=== PATIENT | female | born 1930 | race African-American/Black ===

== ENCOUNTER 2016-11-07 11:39 | Emergency (ER) | payer MEDICARE, MEDICAID ==
[~2016-11-07] VITALS: Ht 152.4 cm; Wt 64.0 kg
[2016-11-07] MEDS ORDERED: ACETAMINOPHEN 325MG TABLET PO ONE (13:15)
[2016-11-07 16:13] VITALS: BP 136/72
== END 2016-11-07 16:34 | disposition home or self-care (01) ==
LOC: ER 12:54
DX: S32.008A Other fracture of unspecified lumbar vertebra, initial encounter for closed fracture (principal); S83.92XA Sprain of unspecified site of left knee, initial encounter; W18.39XA Other fall on same level, initial encounter; Y93.89 Activity, other specified; Y92.89 Other specified places as the place of occurrence of the external cause
CPT/HCPCS: 29505; 72100; 72170; 73562; 99284

== ENCOUNTER 2016-12-15 16:16 | Inpatient (IN) | payer MEDICARE, MEDICAID ==
[~2016-12-15] VITALS: Ht 154.9 cm; Wt 61.4 kg
[2016-12-15 04:00] VITALS: BP 112/77
[2016-12-15] MEDS ORDERED: DILTIAZEM HCL 125 MG in DEXT 5% WATER 100 ML IV ONE (17:30)
[2016-12-15] MEDS ORDERED: DILTIAZEM HCL 5MG/ML 5ML VIAL IV ONE (17:30)
[2016-12-15 18:10] LABS: BASOPHILS % 1.2 % (0.0-2.0); EOSINOPHILS % 0.4 % (0.0-5.0); HEMOGLOBIN. 15.1 g/dL (12.0-16.0); MEAN CORPUSCULAR HEMOGLOBIN 27.8 pg (28.0-32.0); MEAN CORPUSCULAR VOLUME 86.4 fL (81.0-99.0); MEAN PLATELET VOLUME 8.6 fl (7.4-10.4); MONOCYTES % 7.6 % (2.0-8.0); NEUTROPHILS % 66.8 % (40.0-76.0); PLATELET 264 x1000/uL (130-400); RED BLOOD CELL COUNT 5.44 mill/uL (4.2-5.4); RED CELL DISTRIBUTION WIDTH 15.5 % (11.6-14.6)
[2016-12-15 18:18] LABS: INR 1.2; PROTHROMBIN TIME 12.1 sec (9.4-11.6)
[2016-12-15 18:20] LABS: CARBON DIOXIDE 28 mEq/L (21-32); CHLORIDE 103 mEq/L (98-107)
[2016-12-15 18:28] LABS: TROPONIN I < 0.02 ng/mL (0.00-0.04)
[2016-12-15 21:05] VITALS: BP 122/94
[2016-12-15 22:30] VITALS: BP 123/82
[2016-12-15] MEDS ORDERED: POTASSIUM CHLORIDE 20MEQ TABLET SR PO NR (23:45)
[2016-12-16] VITALS (12 sets, daily range): BP systolic 95–149; BP diastolic 48–94
[2016-12-16 01:31] LABS: CREATINE KINASE 48 IU/L (26-192); CREATINE KINASE MB FRACTION 1.4 ng/mL (0.5-3.6); TROPONIN I < 0.02 ng/mL (0.00-0.04)
[2016-12-16 07:50] LABS: HEMATOCRIT. 41.1 % (36.0-48.0); HEMOGLOBIN. 13.6 g/dL (12.0-16.0); MEAN CORPUSCULAR HEMOGLOBIN 28.4 pg (28.0-32.0); MEAN CORPUSCULAR VOLUME 85.5 fL (81.0-99.0); MEAN PLATELET VOLUME 8.5 fl (7.4-10.4); PLATELET 232 x1000/uL (130-400); RED CELL DISTRIBUTION WIDTH 15.5 % (11.6-14.6)
[2016-12-16 08:19] LABS: CARBON DIOXIDE 30 mEq/L (21-32); CHLORIDE 104 mEq/L (98-107); CREATINE KINASE 39 IU/L (26-192); CREATINE KINASE MB FRACTION 1.3 ng/mL (0.5-3.6); T4 FREE 1.02 ng/dL (0.76-1.46); TROPONIN I 0.02 ng/mL (0.00-0.04)
[2016-12-16] MEDS ORDERED: HYDR12.529 PO (08:26)
[2016-12-16] MEDS ORDERED: APIX5TAB PO (08:26)
[2016-12-16] MEDS ORDERED: LOSA50TA20 PO (08:26)
[2016-12-16] MEDS ORDERED: TRAM50TA3 PO (08:26)
[2016-12-16] MEDS ORDERED: DILT120C2 PO (08:26)
[2016-12-16] MEDS ORDERED: ENOXAPARIN 30MG/0.3ML SYR SUBCUT SCH (09:00)
[2016-12-16] MEDS ORDERED: CLOPIDOGREL 75MG TABLET PO SCH (09:00)
[2016-12-16 09:05] LABS: PLATELET ESTIMATE NORMAL
[2016-12-16] MEDS ORDERED: DILTIAZEM HCL 240MG ER (24HR) PO SCH (11:00)
== END 2016-12-16 18:45 | disposition home or self-care (01) | DRG 310 ==
LOC: ER 16:57 → EDBEDREQSVC 19:09 → EDBEDREQ 19:09 → EDBEDREQTM 19:09 → 3WST 20:17 → EDBEDREQTM 20:22 → EDBEDREQ 20:22 → ENRESERV 20:25
PROVIDERS: ADMIT Internal Medicine; ATTEND Internal Medicine
DX: I48.0 Paroxysmal atrial fibrillation (principal); M06.9 Rheumatoid arthritis, unspecified; I10 Essential (primary) hypertension; M19.90 Unspecified osteoarthritis, unspecified site; Z80.0 Family history of malignant neoplasm of digestive organs; Z80.3 Family history of malignant neoplasm of breast; Z91.81 History of falling; Z90.49 Acquired absence of other specified parts of digestive tract; Z90.710 Acquired absence of both cervix and uterus; Z88.0 Allergy status to penicillin; Z88.6 Allergy status to analgesic agent
CPT/HCPCS: 36415; 71010; 80053; 82550; 82553; 83880; 84439; 84443; 84484; 85025; 85610; 93005; 93306; 96374; 99291; J1650; J3490; J7060

== ENCOUNTER 2018-04-03 19:45 | Inpatient (IN) | payer MEDICARE, MEDICAID ==
[~2018-04-03] VITALS: Ht 153.7 cm; Wt 63.5 kg
[~2018-04-03 19:45] MED LIST: APIX5TAB PO; DILT-26 PO; HYDR12.529 PO; LOSA50TA20 PO; TRAM50TA3 PO
[2018-04-03 23:13] LABS: HEMATOCRIT. 50.6 % (36.0-48.0); HEMOGLOBIN. 16.4 g/dL (12.0-16.0); MEAN CORPUSCULAR HEMOGLOBIN 27.8 pg (28.0-32.0); MEAN CORPUSCULAR VOLUME 85.8 fL (81.0-99.0); MEAN PLATELET VOLUME 8.2 fl (7.4-10.4); PLATELET 236 x1000/uL (130-400); RED CELL DISTRIBUTION WIDTH 15.3 % (11.6-14.6)
[2018-04-03 23:18] LABS: CHLORIDE 111 mEq/L (98-107)
[2018-04-03 23:23] LABS: PARTIAL THROMBOPLASTIN TIME 25.2 sec (23.4-31.0); PROTHROMBIN TIME 10.1 sec (9.1-11.1)
[2018-04-03 23:28] LABS: PLATELET ESTIMATE NORMAL
[2018-04-04] MEDS ORDERED: DILTIAZEM HCL 5MG/ML 5ML VIAL IV NR ×3 (00:15→17:15)
[2018-04-04] MEDS ORDERED: SODIUM CHLORIDE 0.9% 500 ML IV NR (00:15)
[2018-04-04] MEDS ORDERED: SODIUM CHLORIDE 0.9% 1,000 ML IV ONE (04:29)
[2018-04-04] MEDS ORDERED: ADENOSINE 3 MG/ML 2ML VIAL IV ONE (04:30)
[2018-04-04 10:30] VITALS: BP 144/89
[2018-04-04] MEDS ORDERED: IPRATROPIUM/ALBUTEROL 0.5-3(2.5)MG/3ML NEB INH PRN (10:30)
[2018-04-04] MEDS ORDERED: MAGNESIUM/ALUMINUM HYDROXIDE/SIMETHICONE 30ML UDC PO PRN (10:30)
[2018-04-04] MEDS ORDERED: HYDROCODONE/ACETAMINOPHEN 10/325MG TABLET PO PRN (10:30)
[2018-04-04] MEDS ORDERED: HYDROMORPHONE HCL/PF 2MG/ML CPJ IV PRN (10:30)
[2018-04-04] MEDS ORDERED: HYDRALAZINE 20MG/ML VIAL IV PRN (10:30)
[2018-04-04] MEDS ORDERED: DIPHENHYDRAMINE 50MG/ML VIAL IV PRN (10:30)
[2018-04-04] MEDS ORDERED: CLONIDINE 0.1MG TABLET PO PRN (10:30)
[2018-04-04] MEDS ORDERED: DOCUSATE SODIUM 100MG CAPSULE PO PRN (10:30)
[2018-04-04] MEDS ORDERED: ACETAMINOPHEN 325MG TABLET PO PRN (10:30)
[2018-04-04] MEDS ORDERED: NA PHOS,M-B/NA PHOS,DI-BA ENEMA 118ML PR PRN (10:30)
[2018-04-04] MEDS ORDERED: LORAZEPAM 2MG/ML CPJ IV PRN ×2 (10:30→18:30)
[2018-04-04] MEDS ORDERED: ONDANSETRON HCL 4MG/2ML INJ IV PRN (10:30)
[2018-04-04] MEDS ORDERED: GUAIFENESIN 200MG/10ML SUGAR FREE UDC PO PRN (10:30)
[2018-04-04 12:00] VITALS: BP 144/80
[2018-04-04] MEDS: APIXABAN 5 MG TABLET PO SCH ×2 (13:25→17:29)
[2018-04-04 16:00] VITALS: BP 144/92
[2018-04-04] MEDS ORDERED: LEVOFLOXACIN 500MG PREMIX 100 ML IV NR (17:00)
[2018-04-04] MEDS: SOTALOL HCL 80MG TABLET PO SCH ×2 (17:29→21:40)
[2018-04-04 17:45] LABS: CHLORIDE 113 mEq/L (98-107)
[2018-04-04] MEDS ORDERED: HYDROCODONE/ACETAMINOPHEN 5/325MG TABLET PO PRN (17:45)
[2018-04-04 17:55] LABS: CREATINE KINASE 60 IU/L (26-192)
[2018-04-04 17:57] LABS: CREATINE KINASE MB FRACTION 2.4 ng/mL (0.5-3.6)
[2018-04-04 17:58] LABS: HEMATOCRIT 46.4 % (36.0-48.0); MEAN CORPUSCULAR HEMOGLOBIN 27.7 pg (28.0-32.0); MEAN CORPUSCULAR VOLUME 85.6 fL (81.0-99.0); PLATELET 213 x1000/uL (130-400); RED BLOOD CELL COUNT 5.42 mill/uL (4.2-5.4); RED CELL DISTRIBUTION WIDTH 15.8 % (11.6-14.6)
[2018-04-04 18:38] LABS: BG BASE EXCESS -0.9 mmol/L (-2.0-2.0); BG CARBOXYHEMOGLOBIN 1.3 % (0.5-1.5); BG DEOXYHEMOGLOBIN 6.5 % (0.0-5.0); BG FRACTION INSPIRED OXYGEN 21; BG METHEMOGLOBIN 0.5 % (0.0-1.5); BG OXYGEN SATURATION 93.4 % (92.0-98.5); BG OXYHEMOGLOBIN 91.7 % (94.0-97.0); BG PH 7.353 (7.350-7.450); BG PO2 67.6 mmHg (75.0-100.0); BG SAMPLE SITE RIGHT RADIAL; BG TOTAL HEMOGLOBIN 15.6 g/dL (12.0-18.0); BG VENT MODE ROOM AIR
[2018-04-04 19:55] LABS: CLARITY URINE CLEAR (CLEAR); COLOR URINE YELLOW (YELLOW); KETONES URINE TRACE (NEGATIVE); LEUKOCYTE ESTERASE URINE NEGATIVE (NEGATIVE); NITRITE URINE NEGATIVE (NEGATIVE); OCCULT BLOOD URINE NEGATIVE (NEGATIVE); PROTEIN URINE NEGATIVE (NEGATIVE); SPECIFIC GRAVITY URINE 1.019 (1.005-1.030); UROBILINOGEN URINE 0.2 E.U./dL (0.2-1.0)
[2018-04-04 20:00] VITALS: BP 125/68
[2018-04-04] MEDS: METRONIDAZOLE 500MG TABLET PO SCH (21:39)
[2018-04-04] MEDS: FAMOTIDINE 20MG/2ML VIAL IV SCH (21:39)
[2018-04-04] MEDS: SODIUM CHLORIDE 0.9% INJ 3ML FLUSH IVF SCH (21:41)
[2018-04-04] MEDS: DILTIAZEM HCL 30MG TABLET PO SCH (21:41)
[2018-04-04] MEDS: DEXT 5%/0.45% NACL 1000ML 1,000 ML IV SCH (21:41)
[2018-04-05] VITALS: BP 105/60
[2018-04-05 04:00] VITALS: BP_SYST 108; BP_SYST 121; BP_DIAS 49; BP_DIAS 56
[2018-04-05] MEDS: DILTIAZEM HCL 30MG TABLET PO SCH (06:00)
[2018-04-05] MEDS: SOTALOL HCL 80MG TABLET PO SCH ×2 (06:00→21:00)
[2018-04-05] MEDS: SODIUM CHLORIDE 0.9% INJ 3ML FLUSH IVF SCH ×3 (06:36→21:14)
[2018-04-05] MEDS: METRONIDAZOLE 500MG TABLET PO SCH ×3 (06:36→21:14)
[2018-04-05] MEDS: DEXT 5%/0.45% NACL 1000ML 1,000 ML IV SCH (06:37)
[2018-04-05 07:05] LABS: CHLORIDE 112 mEq/L (98-107)
[2018-04-05 07:28] LABS: LDL CHOLESTEROL 54 mg/dL (5-100)
[2018-04-05 07:28] LABS: BASOPHILS % 0.2 % (0.0-2.0); EOSINOPHILS % 1.4 % (0.0-5.0); HEMATOCRIT. 40.4 % (36.0-48.0); HEMOGLOBIN. 12.9 g/dL (12.0-16.0); LYMPHOCYTES % 15.8 % (20.0-50.0); MEAN CORPUSCULAR HEMOGLOBIN 27.4 pg (28.0-32.0); MEAN PLATELET VOLUME 8.5 fl (7.4-10.4); MONOCYTES % 11.9 % (2.0-8.0); NEUTROPHILS % 70.7 % (40.0-76.0); PLATELET 172 x1000/uL (130-400); RED CELL DISTRIBUTION WIDTH 15.4 % (11.6-14.6)
[2018-04-05 07:29] LABS: CREATINE KINASE MB FRACTION 2.3 ng/mL (0.5-3.6)
[2018-04-05 07:30] LABS: CREATINE KINASE 55 IU/L (26-192); T4 FREE 1.04 ng/dL (0.76-1.46)
[2018-04-05 07:31] LABS: HDL CHOLESTEROL 51 mg/dL (40-59)
[2018-04-05 08:07] VITALS: BP_SYST 138; BP_SYST 142; BP_SYST 147; BP_DIAS 51; BP_DIAS 59; BP_DIAS 73
[2018-04-05] MEDS: APIXABAN 5 MG TABLET PO SCH ×2 (09:28→18:36)
[2018-04-05] MEDS ORDERED: MAGNESIUM 2 G PREMIX 50 ML IV NR (11:30)
[2018-04-05 12:05] VITALS: BP 140/57
[2018-04-05] MEDS: MAGNESIUM OXIDE 400MG TABLET PO SCH (15:08)
[2018-04-05] MEDS: LEVOFLOXACIN 250MG PREMIX 50 ML IV SCH (15:18)
[2018-04-05 15:56] VITALS: BP 146/60
[2018-04-05 20:00] VITALS: BP 164/82
[2018-04-05] MEDS: FAMOTIDINE 20MG/2ML VIAL IV SCH (21:14)
[2018-04-06] VITALS (7 sets, daily range): BP systolic 109–156; BP diastolic 58–84
[2018-04-06] MEDS: DEXT 5%/0.45% NACL 1000ML 1,000 ML IV SCH ×2 (02:50→09:45)
[2018-04-06] MEDS: SODIUM CHLORIDE 0.9% INJ 3ML FLUSH IVF SCH ×3 (05:47→21:01)
[2018-04-06] MEDS: METRONIDAZOLE 500MG TABLET PO SCH ×3 (05:47→21:01)
[2018-04-06 07:32] LABS: BASOPHILS % 0.2 % (0.0-2.0); EOSINOPHILS % 1.9 % (0.0-5.0); HEMOGLOBIN. 13.1 g/dL (12.0-16.0); LYMPHOCYTES % 20.7 % (20.0-50.0); MEAN CORPUSCULAR HEMOGLOBIN 27.7 pg (28.0-32.0); MEAN CORPUSCULAR VOLUME 84.5 fL (81.0-99.0); MEAN PLATELET VOLUME 8.4 fl (7.4-10.4); MONOCYTES % 9.3 % (2.0-8.0); NEUTROPHILS % 67.9 % (40.0-76.0); PLATELET 181 x1000/uL (130-400); RED BLOOD CELL COUNT 4.74 mill/uL (4.2-5.4); RED CELL DISTRIBUTION WIDTH 15.4 % (11.6-14.6)
[2018-04-06] MEDS: SOTALOL HCL 80MG TABLET PO SCH (09:00)
[2018-04-06] MEDS: APIXABAN 5 MG TABLET PO SCH ×2 (09:20→17:35)
[2018-04-06] MEDS: MAGNESIUM OXIDE 400MG TABLET PO SCH (09:20)
[2018-04-06 10:56] LABS: CHLORIDE 111 mEq/L (98-107)
[2018-04-06] MEDS: LEVOFLOXACIN 250MG PREMIX 50 ML IV SCH (14:25)
[2018-04-06] MEDS: FAMOTIDINE 20MG/2ML VIAL IV SCH (21:01)
[2018-04-07] VITALS (8 sets, daily range): BP systolic 139–188; BP diastolic 56–89
[2018-04-07] MEDS: DEXT 5%/0.45% NACL 1000ML 1,000 ML IV SCH ×2 (03:14→14:14)
[2018-04-07] MEDS: SODIUM CHLORIDE 0.9% INJ 3ML FLUSH IVF SCH ×3 (05:41→20:45)
[2018-04-07] MEDS: METRONIDAZOLE 500MG TABLET PO SCH ×3 (05:41→21:26)
[2018-04-07 07:00] LABS: BASOPHILS % 0.2 % (0.0-2.0); EOSINOPHILS % 2.3 % (0.0-5.0); HEMATOCRIT. 39.5 % (36.0-48.0); HEMOGLOBIN. 12.9 g/dL (12.0-16.0); LYMPHOCYTES % 23.6 % (20.0-50.0); MEAN CORPUSCULAR HEMOGLOBIN 27.8 pg (28.0-32.0); MEAN CORPUSCULAR VOLUME 85.1 fL (81.0-99.0); MEAN PLATELET VOLUME 8.5 fl (7.4-10.4); MONOCYTES % 10.1 % (2.0-8.0); NEUTROPHILS % 63.8 % (40.0-76.0); PLATELET 176 x1000/uL (130-400); RED BLOOD CELL COUNT 4.64 mill/uL (4.2-5.4); RED CELL DISTRIBUTION WIDTH 15.1 % (11.6-14.6)
[2018-04-07 07:15] LABS: CHLORIDE 110 mEq/L (98-107)
[2018-04-07] MEDS: MAGNESIUM OXIDE 400MG TABLET PO SCH (09:56)
[2018-04-07] MEDS: APIXABAN 5 MG TABLET PO SCH (09:56)
[2018-04-07] MEDS ORDERED: CLONIDINE 0.1MG TABLET PO PRN (12:00)
[2018-04-07] MEDS ORDERED: POTASSIUM CHLORIDE 20MEQ/PACKET PO NR (12:45)
[2018-04-07] MEDS: LEVOFLOXACIN 250MG TABLET PO SCH (13:50)
[2018-04-07] MEDS: LOSARTAN POTASSIUM 25 MG TABLET PO SCH ×2 (14:13→20:45)
[2018-04-07] MEDS: FAMOTIDINE 20MG/2ML VIAL IV SCH (20:45)
[2018-04-08] VITALS (9 sets, daily range): BP systolic 142–183; BP diastolic 53–110
[2018-04-08] MEDS: DEXT 5%/0.45% NACL 1000ML 1,000 ML IV SCH (01:45)
[2018-04-08] MEDS: SODIUM CHLORIDE 0.9% INJ 3ML FLUSH IVF SCH ×2 (05:17→14:28)
[2018-04-08] MEDS: METRONIDAZOLE 500MG TABLET PO SCH ×3 (05:17→20:57)
[2018-04-08 07:28] LABS: BASOPHILS % 0.4 % (0.0-2.0); EOSINOPHILS % 1.7 % (0.0-5.0); HEMATOCRIT. 40.9 % (36.0-48.0); HEMOGLOBIN. 13.3 g/dL (12.0-16.0); LYMPHOCYTES % 21.2 % (20.0-50.0); MEAN CORPUSCULAR HEMOGLOBIN 27.4 pg (28.0-32.0); MEAN CORPUSCULAR VOLUME 84.2 fL (81.0-99.0); MEAN PLATELET VOLUME 8.4 fl (7.4-10.4); MONOCYTES % 10.6 % (2.0-8.0); NEUTROPHILS % 66.1 % (40.0-76.0); PLATELET 202 x1000/uL (130-400); RED BLOOD CELL COUNT 4.85 mill/uL (4.2-5.4); RED CELL DISTRIBUTION WIDTH 15.1 % (11.6-14.6)
[2018-04-08 07:56] LABS: CHLORIDE 109 mEq/L (98-107)
[2018-04-08] MEDS: MAGNESIUM OXIDE 400MG TABLET PO SCH (09:24)
[2018-04-08] MEDS: LOSARTAN POTASSIUM 25 MG TABLET PO SCH (09:24)
[2018-04-08] MEDS: APIXABAN 5 MG TABLET PO SCH (09:24)
[2018-04-08] MEDS: LEVOFLOXACIN 250MG TABLET PO SCH (11:45)
[2018-04-08] MEDS: LOSARTAN POTASSIUM 50 MG TABLET PO SCH (20:56)
[2018-04-08] MEDS: FAMOTIDINE 20MG/2ML VIAL IV SCH (20:57)
[2018-04-09] VITALS: BP 155/54
[2018-04-09 04:00] VITALS: BP 148/88
[2018-04-09] MEDS: METRONIDAZOLE 500MG TABLET PO SCH (06:47)
[2018-04-09 08:00] VITALS: BP 151/88
[2018-04-09] MEDS: LOSARTAN POTASSIUM 50 MG TABLET PO SCH (08:24)
[2018-04-09] MEDS: MAGNESIUM OXIDE 400MG TABLET PO SCH (08:24)
[2018-04-09] MEDS: APIXABAN 5 MG TABLET PO SCH (08:27)
[2018-04-09 09:24] LABS: BASOPHILS % 0.2 % (0.0-2.0); EOSINOPHILS % 1.6 % (0.0-5.0); HEMATOCRIT. 46.7 % (36.0-48.0); LYMPHOCYTES % 21.6 % (20.0-50.0); MEAN CORPUSCULAR HEMOGLOBIN 27.7 pg (28.0-32.0); MEAN CORPUSCULAR VOLUME 84.8 fL (81.0-99.0); MEAN PLATELET VOLUME 8.5 fl (7.4-10.4); MONOCYTES % 9.1 % (2.0-8.0); NEUTROPHILS % 67.5 % (40.0-76.0); PLATELET 243 x1000/uL (130-400); RED BLOOD CELL COUNT 5.51 mill/uL (4.2-5.4); RED CELL DISTRIBUTION WIDTH 15.4 % (11.6-14.6)
[2018-04-09 10:00] LABS: HEMOGLOBIN. 15.3 g/dL (12.0-16.0)
[2018-04-09 10:11] LABS: CHLORIDE 108 mEq/L (98-107)
[2018-04-11 04:13] LABS: OVA & PARASITE EXAM Final report (.)
== END 2018-04-09 11:00 | disposition home or self-care (01) | DRG 309 ==
LOC: ER 19:45 → 6WST 04-04 01:09 → EDBEDREQDT 04-04 01:12 → EDBEDREQTM 04-04 01:12 → EDBEDREQ 04-04 01:12 → ENRESERV 04-04 07:24
PROVIDERS: ADMIT Internal Medicine; ATTEND Internal Medicine
DX: I48.0 Paroxysmal atrial fibrillation (principal); J44.1 Chronic obstructive pulmonary disease with (acute) exacerbation; E78.5 Hyperlipidemia, unspecified; E86.0 Dehydration; E83.42 Hypomagnesemia; R73.9 Hyperglycemia, unspecified; E80.6 Other disorders of bilirubin metabolism; I49.3 Ventricular premature depolarization; D72.829 Elevated white blood cell count, unspecified; I08.1 Rheumatic disorders of both mitral and tricuspid valves; I50.9 Heart failure, unspecified; I11.0 Hypertensive heart disease with heart failure; I37.1 Nonrheumatic pulmonary valve insufficiency; K44.9 Diaphragmatic hernia without obstruction or gangrene; K57.90 Diverticulosis of intestine, part unspecified, without perforation or abscess without bleeding; E66.9 Obesity, unspecified; E78.00 Pure hypercholesterolemia, unspecified; I16.0 Hypertensive urgency; M06.9 Rheumatoid arthritis, unspecified; Z79.899 Other long term (current) drug therapy; Z90.49 Acquired absence of other specified parts of digestive tract; Z79.01 Long term (current) use of anticoagulants; Z88.1 Allergy status to other antibiotic agents; Z91.013 Allergy to seafood; Z88.8 Allergy status to other drugs, medicaments and biological substances; Z91.048 Other nonmedicinal substance allergy status; Z68.26 Body mass index [BMI] 26.0-26.9, adult
CPT/HCPCS: 36415; 36600; 71045; 74176; 80048; 80061; 82375; 82550; 82553; 82805; 83036; 83735; 83880; 84439; 84443; 84484; 85027; 87015; 87045; 87177; 87209; 87427; 87449; 87493; 93005; 93306; 93970; 96361; 96374; 96375; 97116; 97162; 97530; 99291; C1893; J0153; J0360; J1170; J1956; J2405; J3475; J3490